=== PATIENT | male | born 1955 | race African-American/Black ===

== ENCOUNTER 2017-02-16 13:40 | Emergency (ER) | payer OTHER ==
[~2017-02-16] VITALS: Ht 188 cm; Wt 70.3 kg
[~2017-02-16 13:40] MED LIST: HYDR-971 PO
[2017-02-16 15:46] LABS: BASO % 1 % (0-3); EOS % 5 % (0-3); HEMATOCRIT 43.5 % (39.0-53.0); HEMOGLOBIN 14.3 g/dL (13.0-17.5); LYMPH # 1.8 x10^3/uL (1.0-4.8); LYMPH % 37 % (24-48); MEAN CORPUSCULAR HEMOGLOBIN 28 pg (25-35); MEAN CORPUSCULAR HGB CONC 33 g/dL (31-37); MEAN CORPUSCULAR VOLUME 86 fL (79-100); MONO % 8 % (0-9); NEUT % 50 % (31-73); PLATELET COUNT 257 x10^3/uL (140-400); RED BLOOD COUNT 5.08 x10^6/uL (4.30-5.70); RED CELL DISTRIBUTION WIDTH 13.9 % (11.5-14.5); WHITE BLOOD COUNT 5.1 x10^3/uL (4.0-11.0)
[2017-02-16 15:54] LABS: CALCIUM 8.7 mg/dL (8.5-10.1); CREATININE 0.9 mg/dL (0.7-1.3); GFR 103.8; MAGNESIUM 1.8 mg/dL (1.8-2.4); POTASSIUM 4.3 mmol/L (3.5-5.1)
[2017-02-16] MEDS ORDERED: GLUCAGON,HUMAN RECOMBINANT 1 MG/ML VIAL. IV ONE (16:00)
[2017-02-16] MEDS ORDERED: IV NORMAL SALINE 1000ML BAG 1,000 ML IV SCH (16:00)
[2017-02-16] MEDS ORDERED: MIDAZOLAM HCL/PF 2 MG/2 ML VIAL. IV ONE (16:00)
--- NOTE | 2017-02-16 16:08 | RAD ---
Portable chest, 02/16/2017: History: Chest pain Comparison is made to a study from 10/15/2014. There has been a previous median sternotomy. The heart size and pulmonary vascularity are normal. There is tortuosity of the thoracic aorta. No pulmonary infiltrates are seen. There is no evidence of pleural fluid. IMPRESSION: 1. Tortuous aorta. 2. No acute cardiopulmonary abnormality is detected.
[2017-02-16] MEDS ORDERED: ONDANSETRON PF 4 MG/2 ML VIAL. IV ONE (16:30)
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
[2017-02-16 17:15] VITALS: BP 137/92
[2017-02-16] MEDS ORDERED: diphenhydrAMINE HCL 25 MG CAPSULE PO ONE (17:45)
--- NOTE | 2017-02-17 06:08 | EKG ---
[facility] [address] [place] [address] Test Date: 2017-02-16 Test Time: 13:45:41 Pat Name: MILAGROS HALLMAN Department: Room: Gender: M Co Director: : 1955 Requested By: VINICIUS PEÑA Order Number: [id number] Reading MD: Odin Herrera Measurements Intervals [place] Rate: 82 P: 62 WI: 128 QRS: 43 QRSD: 86 T: 31 QT: 374 QTc: 440 Interpretive Statements SINUS RHYTHM LEFT ATRIAL ABNORMALITY QRS(T) CONTOUR ABNORMALITY CONSIDER ANTEROSEPTAL MYOCARDIAL DAMAGE ABNORMAL ECG Electronically Signed On 02-19-2017 14:58:38 CDT by Odin Herrera
== END 2017-02-16 17:42 | disposition home or self-care (01) ==
LOC: ER 13:40
DX: T18.9XXA Foreign body of alimentary tract, part unspecified, initial encounter (principal); I10 Essential (primary) hypertension; X58.XXXA Exposure to other specified factors, initial encounter; Y93.89 Activity, other specified; Y99.8 Other external cause status; Y92.89 Other specified places as the place of occurrence of the external cause
CPT/HCPCS: 36415; 71010; 80048; 83735; 85027; 93005; 96361; 96374; 96375; 99285; J1610; J2250; J2405; J7030; Q0163